=== PATIENT | female | born 1935 | race Caucasian/White ===

== ENCOUNTER → 2016-08-24 | Outpatient (CLI) | payer OTHER ==
[~2016-08-24] MED LIST: CALTRATE 600+D PO; CARDIZEM CD240 M1 PO; CARDIZEM CD240 MG PO; CORDARONE200 M1; METOPROLOL SUCC25 MG PO; MULTIPLE VITAMI1 T11 PO; PREVACID PO; VITAMIN D1000 UNI1 PO; XARELTO20 MG PO; ZOCOR10 MG PO; [UNRECOGNIZED DRUG - OTHER] PO
--- NOTE | ~2016-08-24 | MR15 ---
[facility] A Service of [facility] RADIOLOGY TEXT RESULTS PATIENT: SCOTT ROSALES LOCATION: [facility] : 36 UNIT #: [id number] AGE: [address]: Ki Chappell MD SEX: F ORDER DR: [id number] [facility] [address] [place], [place] [address] [id number] O MR#: [id number] Acc #: [id number] NAME: SCOTT ROSALES. : 1935 SEX: F STUDY DATE/TIME: 08/24/2016 14:12 UNIT: [facility] ROOM: STUDY DESCRIPTION: MR Brain W IACS WWo Contrast Attending Physician: Ki Chappell M.D. Referring Physician: Ki Chappell M.D. Ordering Physician: Ki Chappell M.D. Primary Care Physician: Shay Bush M.D. MRI CENTER REPORT This report is preliminary unless electronic signature is present. EXAM Brain MRI with and without contrast 08/24/2016. PROCEDURE Brain and IAC MRI with and without contrast. COMPARISON Prior MRI brain dated 04/18/2010. HISTORY Known meningioma, with worsening sensorineural hearing loss since mid May. FINDINGS There is no MR evidence of acute ischemia. There is no acute restricted diffusion. There are nonspecific white matter changes, and these are slightly more prominent than at the time of the prior exam in 2010. Postcontrast images show enhancement and thickening along the falx, which is stable since the prior study, and a wider area of enhancement encasing and probably occluding the superior sagittal sinus and partially infiltrating the inner table also not significantly changed since the prior study. Dedicated thin-section images through the posterior fossa and IACs show no evidence of mass or abnormal signal on either labyrinth, IAC, or CP angle cistern, and postcontrast images show no abnormal enhancement. IMPRESSION 1. There has been a slight increase in nonspecific white matter change since the prior study, but residual meningioma along the falx is stable. No new tumor is seen. 2. IAC MRI with and without contrast is normal. There is no [facility] A Service of [facility] RADIOLOGY TEXT RESULTS PATIENT: SC[facility] UNIT #: [id number] AGE: [address]: Ki Chappell MD SEX: F ORDER DR: acute-appearing abnormality. Dictated by... Aman Isbell M.D. THIS IS AN ELECTRONICALLY VERIFIED REPORT Aman Isbell M.D. at 09/03/2016 3:59 PM DIANA/skye TD: 09/02/2016 18:14 JOB #: [id number] MRI CENTER REPORT Page 1 of 1 COPY
[2016-08-24 14:06] LABS: POC - CREATININE 0.93 mg/dL (0.44-1.03); POC - GFR >60.0 mL/min (>60)
== END | disposition home or self-care (01) ==
LOC: CMRI 13:32
PROVIDERS: Otolaryngology
DX: H91.8X9 Other specified hearing loss, unspecified ear (principal); D32.0 Benign neoplasm of cerebral meninges
CPT/HCPCS: 70553; 82565; A9577

== ENCOUNTER → 2016-08-31 | Outpatient (CLI) | payer OTHER | END | disposition home or self-care (01) | LOC: CMRI 10:00 | DX: H91.8X9 Other specified hearing loss, unspecified ear (principal) | CPT/HCPCS: 70552; A9577 ==